=== PATIENT | male | born 2000 | race Caucasian/White ===

== ENCOUNTER 2021-05-24 02:34 | Inpatient (IN) ==
--- NOTE | 2021-05-24 03:15 | Emergency Department Note ---
History of Present Illness General Chief complaint: Mental Health Evaluation Stated complaint: MHE Time Seen by Provider: 05/24/21 02:42 History of Present Illness 20-year-old male presents emergency department states that he feels depressed has suicidal ideation with a plan to cut himself while sitting in a bathtub. Patient states he has been feeling this way for a long time now. Patient denies any drug overdose denies alcohol. Patient's. Has no prior history of psychiatric evaluation as an inpatient. Patient has no other complaints Home Medications Medication Instructions Recorded Confirmed Type No Known Home Medications 05/24/21 05/24/21 History Past Med/Surg History Social History Smoking Status: Never smoker Feels Safe at Home: Yes Immunizations: Medical history asthma, depression Review of Systems A total of 10 systems reviewed and were otherwise negative Constitutional: no fever Neurologic: no generalized weakness Psychiatric: + depression, + suicidal ideation and + anxiety Physical Exam Vital Signs Vital Signs - 24 hr 05/24/21 02:39 Temperature 36.9 C Temperature Source Temporal Artery Scan Pulse Rate 113 H Respiratory Rate 16 Blood Pressure 147/97 H Blood Pressure Mean 113 Blood Pressure Position Sitting Pulse Oximetry 96 Oxygen Delivery Method Room Air Sepsis Recent Fever Within 48 Hours No Sepsis New/Unexplained Change in Mental Status No Sepsis Action Taken by Nursing No Action Required VITAL SIGNS - Vital signs and nursing notes were reviewed. GENERAL - No acute distress. Communicates well with provider and answers q uestions appropriately. SKIN - Without rashes. HEAD - NC/AT. EYES - PERRL with EOMI bilaterally. Sclera anicteric. Palpebral conjunctiva pink and moist with no injection noted. EARS - No deformities of external structures noted on gross examination bilaterally. NOSE - Midline and without cyanosis. No epistaxis or purulent drainage noted. Septum midline without deviation or septal hematoma noted. MOUTH/OROPHARYNX - Without perioral cyanosis. NECK - Neck with FROM. LUNGS - Chest wall symmetric without accessory muscle use, intercostals retractions, or central cyanosis. Normal vesicular breath sounds CTA B/L. No wheezes, rales, or rhonchi appreciated. CARDIAC - RRR with S1/S2. No murmur, rubs, or gallops appreciated. ABDOMEN - Abdominal contour soft without pulsations or visible masses. BS normoactive all four quadrants. No tenderness, palpable masses, hepatosplenomegaly, or ascites noted. EXTREMITIES - No clubbing or peripheral cyanosis. . +5/5 strength noted in UE/LE bilaterally. NEUROLOGIC - Cranial nerves II through XII grossly intact. . PSYCH - A&Ox3 and cooperates fully with examiner. Pt is very pleasant and interacts well with examiner. Suicidal ideation Course Reevaluation(s) Reevaluation #1: Patient is resting in no distress, patient is medically cleared at 4:50 AM for psychiatric evaluation. The social work case manager states that the patient will have a bed search for psychiatric disposition Medical Decision Making Medical Records Attestation: I reviewed the patient's medical records. Laboratory Data Attestation: I reviewed the patient's lab results. Result diagrams: 05/24/21 03:21 05/24/21 03:21 Lab Results 05/24/21 05/24/21 05/24/21 Range/Units 03:15 03:15 03:21 WBC 7.24 (4.8-10.8) K/uL RBC 5.23 (4.7-6.1) M/uL Hgb 16.9 (14.0-18.0) g/dL Hct 45.3 (42-52) % MCV 86.6 (80-100) fL MCH 32.3 (25-34) pg MCHC 37.3 H (32-36) g/dL RDW Std Deviation 38.8 (36.4-46.3) fL RDW Coeff of Paul 12.2 (11.5-14.5) % Plt Count 272 (130-400) K/uL MPV 9.3 (7.4-10.4) fL Immature Gran % (Auto) 0.1 % Neut % (Auto) 55.2 % Lymph % (Auto) 33.6 % Lee % (Auto) 9.5 % Eos % (Auto) 1.5 % Baso % (Auto) 0.1 % Neut # (Auto) 3.99 (1.4-6.5) K/uL Lymph # (Auto) 2.43 (1.2-3.4) K/uL Lee # (Auto) 0.69 H (0.11-0.59) K/uL Eos # (Auto) 0.11 (0-0.5) K/uL Baso # (Auto) 0.01 (0-0.2) K/uL Immature Gran # (Auto) 0.01 (0.00-0.02) K/uL Sodium (136-145) mmol/L Potassium (3.5-5.1) mmol/L Chloride (98-107) mmol/L Carbon Dioxide (21-32) mmol/L Anion Gap (3-11) BUN (6-23) mg/dl Creatinine (0.6-1.4) mg/dl Est Cr Clr Drug Dosing ml/min Est GFR ( Amer) ml/min Est GFR (Non-Af Amer) ml/min BUN/Creatinine Ratio (10-20) Glucose (70-99(Fasting)) mg/dl Calcium (8.5-10.1) mg/dl Total Bilirubin (0.2-1.0) mg/dl AST (13-39) U/L ALT (7-52) U/L Alkaline Phosphatase (34-104) U/L Total Protein (6.0-8.3) gm/dl Albumin (3.4-5.0) gm/dl Globulin (2.5-4.0) gm/dl Albumin/Globulin Ratio (0.9-2) TSH (0.300-4.500) uIu/ml Urine Color Yellow Urine Appearance Clear (Clear) Urine pH 6.5 (4.5-7.5) Ur Specific [place] 1.009 (1.000-1.030) Urine Protein Negative (Negative) Urine Glucose (UA) Negative (Negative) Urine Ketones Negative (Negative) Urine Blood Negative (Negative) Urine Nitrite Negative (Negative) Urine Bilirubin Negative (Negative) Urine Urobilinogen Negative (Negative) Ur Leukocyte Esterase Negative (Negative) Salicylates (3.0-30) mg/dl Urine Opiates Screen Neg (Neg) Ur Methadone, Qual Neg (Neg) Acetaminophen (10-30) ug/ml Urine Barbiturates Neg (Neg) Ur Phencyclidine (PCP) Neg (Neg) U Amphetamin/Meth Scrn Neg (Neg) MDMA (Ecstasy) Screen Neg (Neg) U Benzodiazepines Scrn Neg (Neg) Ur Cocaine Metabolite Neg (Neg) U Marijuana (THC) Screen Neg (Neg) Ethyl Alcohol mg/dL (<10.0) mg/dl 03/05/24/21 05/24/21 Range/Units 03:21 03:21 03:21 WBC (4.8-10.8) K/uL RBC (4.7-6.1) M/uL Hgb (14.0-18.0) g/dL Hct (42-52) % MCV (80-100) fL MCH (25-34) pg MCHC (32-36) g/dL RDW Std Deviation (36.4-46.3) fL RDW Coeff of Paul (11.5-14.5) % Plt Count (130-400) K/uL MPV (7.4-10.4) fL Immature Gran % (Auto) % Neut % (Auto) % Lymph % (Auto) % Lee % (Auto) % Eos % (Auto) % Baso % (Auto) % Neut # (Auto) (1.4-6.5) K/uL Lymph # (Auto) (1.2-3.4) K/uL [place] # (Auto) (0.11-0.59) K/uL Eos # (Auto) (0-0.5) K/uL Baso # (Auto) (0-0.2) K/uL Immature Gran # (Auto) (0.00-0.02) K/uL Sodium 137 (136-145) mmol/L Potassium 3.8 (3.5-5.1) mmol/L Chloride 103 (98-107) mmol/L Carbon Dioxide 26 (21-32) mmol/L Anion Gap 8 (3-11) BUN 13 (6-23) mg/dl Creatinine 1.00 (0.6-1.4) mg/dl Est Cr Clr Drug Dosing 144.6 ml/min Est GFR ( Amer) 124.1 ml/min Est GFR (Non-Af Amer) 107.1 ml/min BUN/Creatinine Ratio 13.0 (10-20) Glucose 94 (70-99(Fasting)) mg/dl Calcium 9.5 (8.5-10.1) mg/dl Total Bilirubin 0.5 (0.2-1.0) mg/dl AST 40 H (13-39) U/L ALT 53 H (7-52) U/L Alkaline Phosphatase 76 (34-104) U/L Total Protein 7.1 (6.0-8.3) gm/dl Albumin 4.7 (3.4-5.0) gm/dl Globulin 2.4 L (2.5-4.0) gm/dl Albumin/Globulin Ratio 2.0 (0.9-2) TSH 2.018 (0.300-4.500) uIu/ml Urine Color Urine Appearance (Clear) Urine pH (4.5-7.5) Ur Specific [place] (1.000-1.030) Urine Protein (Negative) Urine Glucose (UA) (Negative) Urine Ketones (Negative) Urine Blood (Negative) Urine Nitrite (Negative) Urine Bilirubin (Negative) Urine Urobilinogen (Negative) Ur Leukocyte Esterase (Negative) Salicylates < 3.0 L (3.0-30) mg/dl Urine Opiates Screen (Neg) Ur Methadone, Qual (Neg) Acetaminophen < 3 L (10-30) ug/ml Urine Barbiturates (Neg) Ur Phencyclidine (PCP) (Neg) U Amphetamin/Meth Scrn (Neg) MDMA (Ecstasy) Screen (Neg) U Benzodiazepines Scrn (Neg) Ur Cocaine Metabolite (Neg) U Marijuana (THC) Screen (Neg) Ethyl Alcohol mg/dL (<10.0) mg/dl 16 Range/Units 03:21 WBC (4.8-10.8) K/uL RBC (4.7-6.1) M/uL Hgb (14.0-18.0) g/dL Hct (42-52) % MCV (80-100) fL MCH (25-34) pg MCHC (32-36) g/dL RDW Std Deviation (36.4-46.3) fL RDW Coeff of Paul (11.5-14.5) % Plt Count (130-400) K/uL MPV (7.4-10.4) fL Immature Gran % (Auto) % Neut % (Auto) % Lymph % (Auto) % Lee % (Auto) % Eos % (Auto) % Baso % (Auto) % Neut # (Auto) (1.4-6.5) K/uL Lymph # (Auto) (1.2-3.4) K/uL Lee # (Auto) (0.11-0.59) K/uL Eos # (Auto) (0-0.5) K/uL Baso # (Auto) (0-0.2) K/uL Immature Gran # (Auto) (0.00-0.02) K/uL Sodium (136-145) mmol/L Potassium (3.5-5.1) mmol/L Chloride (98-107) mmol/L Carbon Dioxide (21-32) mmol/L Anion Gap (3-11) BUN (6-23) mg/dl Creatinine (0.6-1.4) mg/dl Est Cr Clr Drug Dosing ml/min Est GFR ( Amer) ml/min Est GFR (Non-Af Amer) ml/min BUN/Creatinine Ratio (10-20) Glucose (70-99(Fasting)) mg/dl Calcium (8.5-10.1) mg/dl Total Bilirubin (0.2-1.0) mg/dl AST (13-39) U/L ALT (7-52) U/L Alkaline Phosphatase (34-104) U/L Total Protein (6.0-8.3) gm/dl Albumin (3.4-5.0) gm/dl Globulin (2.5-4.0) gm/dl Albumin/Globulin Ratio (0.9-2) TSH (0.300-4.500) uIu/ml Urine Color Urine Appearance (Clear) Urine pH (4.5-7.5) Ur Specific [place] (1.000-1.030) Urine Protein (Negative) Urine Glucose (UA) (Negative) Urine Ketones (Negative) Urine Blood (Negative) Urine Nitrite (Negative) Urine Bilirubin (Negative) Urine Urobilinogen (Negative) Ur Leukocyte Esterase (Negative) Salicylates (3.0-30) mg/dl Urine Opiates Screen (Neg) Ur Methadone, Qual (Neg) Acetaminophen (10-30) ug/ml Urine Barbiturates (Neg) Ur Phencyclidine (PCP) (Neg) U Amphetamin/Meth Scrn (Neg) MDMA (Ecstasy) Screen (Neg) U Benzodiazepines Scrn (Neg) Ur Cocaine Metabolite (Neg) U Marijuana (THC) Screen (Neg) Ethyl Alcohol mg/dL < 10.0 (<10.0) mg/dl MDM Narrative Medical decision making differential diagnosis suicidal ideation, depression, anxiety. We will check labs, psych counselor evaluation Impression & Plan Depression with suicidal ideation Discharge Plan Visit Data Chief Complaint: Mental Health Evaluation Stated Complaint: MHE ED Provider: Aamir Esquivel Discharge Problem: Depression with suicidal ideation Patient Disposition: Transfer Behavioral Health Fac Forms Stand Alone Forms: [facility], Suicide Prevention Resources Prescriptions Prescriptions: No Action No Known Home Medications RF: 0 Referrals Referrals: PCP,NO [Primary Care Provider] -
[2021-05-24 03:23] LABS: Appearance Urine Clear (Clear); Bilirubin Urine Negative (Negative); Blood Urine Negative (Negative); Color Urine Yellow; Glucose Urine UA Negative (Negative); Ketones Urine Negative (Negative); Leukocyte Esterase Urine Negative (Negative); Nitrite Urine Negative (Negative); Protein Urine Negative (Negative); Specific Gravity Urine 1.009 (1.000-1.030); Urobilinogen Urine Negative (Negative); pH Urine 6.5 (4.5-7.5)
[2021-05-24 03:33] LABS: Basophils # (auto) 0.01 K/uL (0-0.2); Basophils % (auto) 0.1 %; Eosinophils # (auto) 0.11 K/uL (0-0.5); Eosinophils % (auto) 1.5 %; Hematocrit (blood only) 45.3 % (42-52); Hemoglobin 16.9 g/dL (14.0-18.0); Immature Granulocytes # (auto) 0.01 K/uL (0.00-0.02); Immature Granulocytes % (auto) 0.1 %; Lymphocytes # (auto) 2.43 K/uL (1.2-3.4); Lymphocytes % (auto) 33.6 %; Mean Corpuscular Hemoglobin 32.3 pg (25-34); Mean Corpuscular Hgb Conc 37.3 g/dL (32-36); Mean Corpuscular Volume 86.6 fL (80-100); Mean Platelet Volume 9.3 fL (7.4-10.4); Monocytes # (auto) 0.69 K/uL (0.11-0.59); Monocytes % (auto) 9.5 %; Neutrophils # (auto) 3.99 K/uL (1.4-6.5); Neutrophils % (auto) 55.2 %; Platelet Count 272 K/uL (130-400); RDW Coefficient of Variation 12.2 % (11.5-14.5); RDW Standard Deviation 38.8 fL (36.4-46.3); Red Blood Count 5.23 M/uL (4.7-6.1); White Blood Count 7.24 K/uL (4.8-10.8)
[2021-05-24 03:43] LABS: Amphetamines+Metham, Urine Neg (Neg); Barbiturates, Urine Neg (Neg); Benzodiazepine, Urine Neg (Neg); Cocaine, Urine Neg (Neg); MDMA (Ecstacy), Urine Neg (Neg); Methadone, Urine Neg (Neg); Opiate, Urine Neg (Neg); Phencyclidine, Urine Neg (Neg)
[2021-05-24 04:36] LABS: Acetaminophen < 3 ug/ml (10-30); Salicylate < 3.0 mg/dl (3.0-30)
[2021-05-24 04:44] LABS: Albumin Level 4.7 gm/dl (3.4-5.0); Bilirubin,Total 0.5 mg/dl (0.2-1.0); Calcium 9.5 mg/dl (8.5-10.1); Creatinine Clr Calc Pharmacy 144.6 ml/min; Est GFR (African American) 124.1 ml/min; Est GFR (Non-African American) 107.1 ml/min; Globulin 2.4 gm/dl (2.5-4.0); Potassium 3.8 mmol/L (3.5-5.1); Total Protein 7.1 gm/dl (6.0-8.3)
[2021-05-24] MEDS ORDERED: MAGNESIUM HYDROXIDE SUSP 30 ML UDC PO PRN (08:11)
[2021-05-24] MEDS ORDERED: ALUMINUM/MAGNESIUM SUSP 30 ML UDC PO PRN (08:11)
[2021-05-24] MEDS ORDERED: ACETAMINOPHEN 325 MG TAB PO PRN (08:11)
[2021-05-24] MEDS ORDERED: hydrOXYzine HCl 25 MG TAB PO PRN ×2 (08:11)
[2021-05-24] MEDS ORDERED: SODIUM CHLORIDE 0.65% NA SOLN 45 ML (OCEAN) PRN (08:11)
[2021-05-24] MEDS ORDERED: BISMUTH SUBSALICYLATE LIQD 236 ML PO PRN (08:11)
[2021-05-24] MEDS ORDERED: PATIENT'S ALLERGY INFO NEEDS ENTERED SCH (08:45)
--- NOTE | 2021-05-24 09:11 | Emergency Department Note ---
ED Visit Note The patient was taken in signout from Dr. Esquivel at the change of shift. Please see his note for details of the patient's presentation. The patient was pending inpatient psychiatric placement for suicidal ideation with plan. Patient was voluntary at the time of signout. Patient was accepted to [facility]. 201 was signed. .
[2021-05-24] MEDS ORDERED: buPROPion SR 100 MG TABCR PO ONE (10:46)
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
[2021-05-25] MEDS: buPROPion SR 150 MG TABCR PO SCH (08:21)
--- NOTE | 2021-05-25 14:18 | Psychiatric Progress Note ---
Date of Service May 25, 2021 Impression / Recommendations Impression 20 yo male with multiple vegetative symptoms of depression, minimal anxiety component, presents with SI with plan and ongoing SIB. He did not disclose any ED symptoms but reports general dislike of physique. He is undecided about continuing his college semester. 05/25/21: minimal change (1) Depression with suicidal ideation: 05/25/21: continue Wellbutrin trial. Continued inpatient hospitalization is medically necessary for ongoing monitoring and safety. 05/24/21: The patient was admitted to the [facility] ([facility] mental health unit) on q15 min checks (behavioral with suicide precautions) for safety. The patient will participate in group, recreational, and milieu therapies and will be offered additional individual and family sessions as clinically appropriate. Risks/benefits/alternatives reviewed re: antidepressants. Discussion included but was not limited to FDA warnings re: suicidality. The patient agreed to a trial of Wellbutrin. Will begin Wellbutrin SR 100 mg today and increase to 150 mg po qam tomorrow. Inventory Assets Strengths: intelligent, respectful Needs: student care advocacy, family involvement Risk Factors Assessment Male: Yes : Yes Do You Have Access To A Gun?: No Health Problems: No Substance Use Disorders: No Previous Attempt: No Family History of Suicide: Yes (at least believes a paternal cousin completed suicide, family doesn't talk) Previous Psychiatric Hospitalization: No Protective Factors Assessment Employed: Yes Stable Relationships: Yes Interval History Identifying Information MEHDI JAEGER is a 20-year-old M, [employer] student from [facility] who was admitted on 05/24/21 08:11 on a 201 voluntary commitment for SI with plan. Chief Complaint "I guess I feel pretty much the same but also worried about school. Of course if I was home I'd probably be sleeping right now". Review of Systems Sleep Information Total Hours of Sleep: 6.5 Sleep Comments: pt on q-15 minute checks Meal Information Percent Meal Consumed - Breakfast: 100 Percent Meal Consumed - Lunch: 100 Percent Meal Consumed - Dinner: 80 Subjective Subjective Patient was seen & assessed and interval progress reviewed with nursing and social work. Cooperative with unit routines and good participant in group. States he is still having some suicidal thoughts at times but not as intense. Tolerating Wellbutrin. Physical Exam Psychiatric Orientation: alert and oriented x 3 Apperance: appropriately dressed and appropriately groomed Eye Contact: good eye contact Motor Behavior: no abnormal motor movements Speech: normal rate/rhythm/volume of speech Affect: + depressed affect Mood: + depressed mood Thought Process: goal directed thought process Thought Content: reality based without delusions Suicidal Thoughts: denies suicidal plan and denies suicidal intent (on unit); + reports suicidal thoughts Homicidal Thoughts: denies homicidal thoughts Hallucinations: no auditory hallucinations and no visual hallucinations Cognition: attention grossly intact and language grossly intact Estimated Intelligence: consistent with education level Insight: + fair insight Judgement: + fair judgement Vital Signs (Past 24 Hours) Last Vital Signs Temp 36.4 C L 05/25/21 06:35 Pulse 82 05/25/21 06:37 Resp 16 05/25/21 06:35 BP 127/82 05/25/21 06:37 Pulse Ox 98 05/24/21 09:00 Results & Data ([facility]) Current Inpatient Medications Current Inpatient Medications: Current Inpatient Medications Acetaminophen (Acetaminophen 325 Mg Tab) 650 mg PO Q4H PRN PRN Reason: Headache or Minor Fever Stop: 06/23/21 08:10 Al Hydrox/Mg Hydrox/Simethicone (Aluminum/Magnesium Susp 30 Ml Udc) 30 ml PO Q4H PRN PRN Reason: GI Upset Stop: 06/23/21 08:10 Bismuth Subsalicylate (Bismuth Subsalicylate Liqd 236 Ml) 15 ml PO PRN PRN PRN Reason: Loose Stool Stop: 06/23/21 08:10 Bupropion HCl (Bupropion Sr 150 Mg Tabcr) 150 mg PO QAM RADHAMES Stop: 06/24/21 08:59 Last Admin: 05/25/21 08:21 Dose: 150 mg Documented by: Hydroxyzine HCl (Hydroxyzine Hcl 25 Mg Tab) 50 mg PO HSZ PRN PRN Reason: Insomnia Stop: 06/23/21 08:10 Hydroxyzine HCl (Hydroxyzine Hcl 25 Mg Tab) 25 mg PO Q4H PRN PRN Reason: Anxiety Stop: 06/23/21 08:10 Magnesium Hydroxide (Magnesium Hydroxide Susp 30 Ml Udc) 30 ml PO DAILY PRN PRN Reason: Constipation Stop: 06/23/21 08:10 Sodium Chloride (Sodium Chloride 0.65% Na Soln 45 Ml ([place])) 1 - 2 sprays NA PRN PRN PRN Reason: Nasal Dryness/Congestion Stop: 06/23/21 08:10 Mental Health & Subst Abuse Tx Psychiatrist Name of Psychiatrist: Apollo Rutledge Psychiatrist's Phone Number: Date of Appointment with Psychiatrist: 06/23/21 Time of Appointment with Psychiatrist: 12:45pm Psychiatric Appointment Comment: [address] [place], [place] Therapist Name of Therapist: Shital Ram Therapist's Date of Therapist Appointment: 05/30/21 Time of Therapist Appointment: 11:30am Therapy Appointment Comment: virtual Lead Business Systems Analyst Name of Lead Business Systems Analyst: None
[2021-05-26] MEDS: buPROPion SR 150 MG TABCR PO SCH (07:49)
--- NOTE | 2021-05-26 14:02 | Psychiatric Progress Note ---
Date of Service May 26, 2021 Impression / Recommendations Impression 20 yo male with multiple vegetative symptoms of depression, minimal anxiety component, presents with SI with plan and ongoing SIB. He did not disclose any ED symptoms but reports general dislike of physique. He is undecided about continuing his college semester. 05/26/21: slight improvement but some side effects of Wellbutrin (1) Depression with suicidal ideation: 05/26/21: he would prefer to decrease Wellbutrin back to 100 mg SR and monitor side effects. No evidence of activation on exam. Family meeting today with mother. 05/25/21: continue Wellbutrin trial. Continued inpatient hospitalization is medically necessary for ongoing monitoring and safety. 05/24/21: The patient was admitted to the [facility] ([facility] unit) on q15 min checks (behavioral with suicide precautions) for safety. The patient will participate in group, recreational, and milieu therapies and will be offered additional individual and family sessions as clinically appropriate. Risks/benefits/alternatives reviewed re: antidepressants. Discussion included but was not limited to FDA warnings re: suicidality. The patient agreed to a trial of Wellbutrin. Will begin Wellbutrin SR 100 mg today and increase to 150 mg po qam tomorrow. Inventory Assets Strengths: intelligent, respectful Needs: student care advocacy, family involvement Risk Factors Assessment Male: Yes : Yes Do You Have Access To A Gun?: No Health Problems: No Substance Use Disorders: No Previous Attempt: No Family History of Suicide: Yes (at least believes a paternal cousin completed suicide, family doesn't talk) Previous Psychiatric Hospitalization: No Protective Factors Assessment Employed: Yes Stable Relationships: Yes Interval History Identifying Information MEHDI JAEGER is a 20-year-old M, [employer] student from [facility] who was admitted on 05/24/21 08:11 on a 201 voluntary commitment for SI with plan. Chief Complaint "I feel a little better but also some side effects maybe". Review of Systems Sleep Information Total Hours of Sleep: 6.75 Sleep Comments: pt on q-15 minute checks Meal Information Percent Meal Consumed - Breakfast: 100 Percent Meal Consumed - Lunch: 100 Percent Meal Consumed - Dinner: 60 Subjective Subjective Patient was seen & assessed and interval progress reviewed with treatment team. The patient reports some stomach ache after yesterday pm meal, slight this am but ate. No emesis. Somewhat harder time falling asleep last pm but did not request a prn. Denies racing thoughts and thoughts were of music rather than SI. He reports a loose BM. Physical Exam Psychiatric Orientation: alert and oriented x 3 Apperance: appropriately dressed and appropriately groomed Eye Contact: good eye contact Motor Behavior: no abnormal motor movements Speech: normal rate/rhythm/volume of speech Mood: + depressed mood Thought Process: goal directed thought process Thought Content: reality based without delusions Suicidal Thoughts: denies suicidal thoughts Homicidal Thoughts: denies homicidal thoughts Hallucinations: no auditory hallucinations and no visual hallucinations Cognition: attention grossly intact and language grossly intact Estimated Intelligence: consistent with education level Insight: + fair insight Judgement: + fair judgement Vital Signs (Past 24 Hours) Last Vital Signs Temp 36.4 C L 05/26/21 06:00 Pulse 93 H 05/26/21 06:57 Resp 16 05/26/21 06:00 BP 123/84 05/26/21 06:57 Pulse Ox 98 05/24/21 09:00 Results & Data ([facility]) Current Inpatient Medications Current Inpatient Medications: Current Inpatient Medications Acetaminophen (Acetaminophen 325 Mg Tab) 650 mg PO Q4H PRN PRN Reason: Headache or Minor Fever Stop: 06/23/21 08:10 Al Hydrox/Mg Hydrox/Simethicone (Aluminum/Magnesium Susp 30 Ml Udc) 30 ml PO Q4H PRN PRN Reason: GI Upset Stop: 06/23/21 08:10 Last Admin: 05/25/21 20:50 Dose: 30 ml Documented by: Bismuth Subsalicylate (Bismuth Subsalicylate Liqd 236 Ml) 15 ml PO PRN PRN PRN Reason: Loose Stool Stop: 06/23/21 08:10 Bupropion HCl (Bupropion Sr 100 Mg Tabcr) 100 mg PO QAM RADHAMES Stop: 06/26/21 08:59 Hydroxyzine HCl (Hydroxyzine Hcl 25 Mg Tab) 50 mg PO HSZ PRN PRN Reason: Insomnia Stop: 06/23/21 08:10 Hydroxyzine HCl (Hydroxyzine Hcl 25 Mg Tab) 25 mg PO Q4H PRN PRN Reason: Anxiety Stop: 06/23/21 08:10 Magnesium Hydroxide (Magnesium Hydroxide Susp 30 Ml Udc) 30 ml PO DAILY PRN PRN Reason: Constipation Stop: 06/23/21 08:10 Sodium Chloride (Sodium Chloride 0.65% Na Soln 45 Ml ([place])) 1 - 2 sprays NA PRN PRN PRN Reason: Nasal Dryness/Congestion Stop: 06/23/21 08:10 Mental Health & Subst Abuse Tx Psychiatrist Name of Psychiatrist: Apollo Rutledge Psychiatrist's Phone Number: [phone] Date of Appointment with Psychiatrist: 06/23/21 Time of Appointment with Psychiatrist: 12:45pm Psychiatric Appointment Comment: [address] [place], [place] Therapist Name of Therapist: Shital Ram Therapist's Date of Therapist Appointment: 05/30/21 Time of Therapist Appointment: 11:30am Therapy Appointment Comment: virtual Soundscriber Mechanic Name of Soundscriber Mechanic: Tate
[2021-05-27] MEDS: buPROPion SR 100 MG TABCR PO SCH (08:42)
--- NOTE | 2021-05-27 09:01 | Psychiatric Progress Note ---
Date of Service May 27, 2021 Impression / Recommendations Impression 20 yo man with multiple vegetative symptoms of depression, minimal anxiety component, presents with SI with plan and ongoing SIB. Diagnostically consistent with MDD. He continues to require psychiatric hospitalization for safety and stabilization, medication management and development of further coping skills. 05/27/21: tolerating lower dose of Wellbutrin and mood improving slowly. (1) Depression with suicidal ideation: 05/27/21: Continue with Wellbutrin SR 100mg qd. 05/26/21: he would prefer to decrease Wellbutrin back to 100 mg SR and monitor side effects. No evidence of activation on exam. Family meeting today with mother. 05/25/21: continue Wellbutrin trial. Continued inpatient hospitalization is medically necessary for ongoing monitoring and safety. 05/24/21: The patient was admitted to the [facility] ([facility] mental health unit) on q15 min checks (behavioral with suicide precautions) for safety. The patient will participate in group, recreational, and milieu therapies and will be offered additional individual and family sessions as clinically appropriate. Risks/benefits/alternatives reviewed re: antidepressants. Discussion included but was not limited to FDA warnings re: suicidality. The patient agreed to a trial of Wellbutrin. Will begin Wellbutrin SR 100 mg today and increase to 150 mg po qam tomorrow. Inventory Assets Strengths: intelligent, respectful Needs: student care advocacy, family involvement Risk Factors Assessment Male: Yes : Yes Do You Have Access To A Gun?: No Health Problems: No Substance Use Disorders: No Previous Attempt: No Family History of Suicide: Yes (at least believes a paternal cousin completed suicide, family doesn't talk) Previous Psychiatric Hospitalization: No Protective Factors Assessment Employed: Yes Stable Relationships: Yes Interval History Identifying Information MEHDI JAEGER is a 20-year-old man and [employer] student from [facility] who was admitted on 05/24/21 08:11 on a 201 voluntary commitment for SI with plan. Chief Complaint "I'm pretty good". Review of Systems Sleep Information Total Hours of Sleep: 6.5 Sleep Comments: pt on q-15 minute checks Meal Information Percent Meal Consumed - Breakfast: 100 Percent Meal Consumed - Lunch: 100 Percent Meal Consumed - Dinner: 100 Subjective Subjective Patient was seen & assessed and interval progress reviewed with treatment team nursing and social work. He reports improved sleep last night and no side effects with reduced dose of Wellbutrin SR. Had some SI last night before falling asleep which he felt he was able to manage by using coping skills he's learned in the groups and alternative helpful thoughts. Reviewed options for further dose titration to XL with potential for side effects versus remaining on SR. He's prefer to remain on SR for a few weeks and then could consider further dose titration as he doesn't want to re-experience potential side effects as he did with dose titration previously. Reviewed also potential in furture for SSRI augmentation if side effects preclude further Wellbutrin dose titration. Denies SI. No further GI side effects. Physical Exam Psychiatric Orientation: alert and oriented x 3 Apperance: appropriately dressed and appropriately groomed Eye Contact: good eye contact Motor Behavior: no abnormal motor movements Speech: normal rate/rhythm/volume of speech Affect: euthymic affect Mood: + depressed mood Thought Process: goal directed thought process Thought Content: reality based without delusions Suicidal Thoughts: denies suicidal thoughts Homicidal Thoughts: denies homicidal thoughts Hallucinations: no auditory hallucinations and no visual hallucinations Cognition: recent memory grossly intact, remote memory grossly intact, attention grossly intact and language grossly intact Estimated Intelligence: consistent with education level Insight: + fair insight Judgement: + fair judgement Vital Signs (Past 24 Hours) Last Vital Signs Temp 36.4 C L 05/27/21 06:00 Pulse 87 05/27/21 06:56 Resp 16 05/27/21 06:00 BP 122/81 05/27/21 06:56 Pulse Ox 98 05/24/21 09:00 Results & Data ([facility]) Current Inpatient Medications Current Inpatient Medications: Current Inpatient Medications Acetaminophen (Acetaminophen 325 Mg Tab) 650 mg PO Q4H PRN PRN Reason: Headache or Minor Fever Stop: 06/23/21 08:10 Last Admin: 05/26/21 21:58 Dose: 650 mg Documented by: Al Hydrox/Mg Hydrox/Simethicone (Aluminum/Magnesium Susp 30 Ml Udc) 30 ml PO Q4H PRN PRN Reason: GI Upset Stop: 06/23/21 08:10 Last Admin: 05/25/21 20:50 Dose: 30 ml Documented by: Bismuth Subsalicylate (Bismuth Subsalicylate Liqd 236 Ml) 15 ml PO PRN PRN PRN Reason: Loose Stool Stop: 06/23/21 08:10 Bupropion HCl (Bupropion Sr 100 Mg Tabcr) 100 mg PO QAM RADHAMES Stop: 06/26/21 08:59 Last Admin: 05/27/21 08:42 Dose: 100 mg Documented by: Hydroxyzine HCl (Hydroxyzine Hcl 25 Mg Tab) 50 mg PO HSZ PRN PRN Reason: Insomnia Stop: 06/23/21 08:10 Hydroxyzine HCl (Hydroxyzine Hcl 25 Mg Tab) 25 mg PO Q4H PRN PRN Reason: Anxiety Stop: 06/23/21 08:10 Magnesium Hydroxide (Magnesium Hydroxide Susp 30 Ml Udc) 30 ml PO DAILY PRN PRN Reason: Constipation Stop: 06/23/21 08:10 Sodium Chloride (Sodium Chloride 0.65% Na Soln 45 Ml ([place])) 1 - 2 sprays NA PRN PRN PRN Reason: Nasal Dryness/Congestion Stop: 06/23/21 08:10 Mental Health & Subst Abuse Tx Psychiatrist Name of Psychiatrist: Apollo Rutledge Psychiatrist's Phone Number: Date of Appointment with Psychiatrist: 06/23/21 Time of Appointment with Psychiatrist: 12:45pm Psychiatric Appointment Comment: [address] [place], [place] Therapist Name of Therapist: Shital Ram Therapist's Date of Therapist Appointment: 05/30/21 Time of Therapist Appointment: 11:30am Therapy Appointment Comment: virtual Judge Clerk Name of Judge Clerk: None Post Discharge Appointments Primary Care Physician Name Of Family Doctor: Juan Pablo [facility] Yeni Liao PA-C Primary Care Date of Appointment with PCP: 06/01/21 Time of Appointment with PCP: 10:30 AM Provider Appointment Comment: [address] [facility] [address]rd Floor, [employer] [facility] [place] [address]
[2021-05-28] MEDS: buPROPion SR 100 MG TABCR PO SCH (08:47)
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
== END 2021-05-28 12:20 | disposition home or self-care (01) | DRG 885 ==
LOC: ED 02:34 → 3S 08:11